=== PATIENT | male | born 1970 | race American Indian/Alaskan Native ===

== ENCOUNTER 2020-12-14 10:31 | Outpatient (CLI) | payer SELFPAY ==
[2020-12-14] MEDS ORDERED: COVID-19 VACC, MRNA(PFIZER)/PF 30 MCG/0.3 ML IM ONE (10:39)
== END 2020-12-14 10:32 | disposition home or self-care (01) ==
LOC: COVVAC 10:31
PROVIDERS: ATTEND Internal Medicine
DX: Z23 Encounter for immunization (principal)
CPT/HCPCS: 0002A; 91300